=== PATIENT | female | born 1990 | race Caucasian/White ===

== ENCOUNTER → 2016-12-28 11:51 | Outpatient (CLI) | payer MEDICAID | END | disposition home or self-care (01) | LOC: D.LDO 11:51 | DX: O36.5930 Maternal care for other known or suspected poor fetal growth, third trimester, not applicable or unspecified (principal); Z3A.36 36 weeks gestation of pregnancy ==

== ENCOUNTER → 2016-12-31 12:41 | Outpatient (CLI) | payer MEDICAID | END | disposition home or self-care (01) | LOC: D.LDO 12:41 | DX: O36.5930 Maternal care for other known or suspected poor fetal growth, third trimester, not applicable or unspecified (principal); Z3A.36 36 weeks gestation of pregnancy ==

== ENCOUNTER → 2017-01-04 09:19 | Outpatient (CLI) | payer MEDICAID | END | disposition home or self-care (01) | LOC: D.LDO 09:19 | DX: O36.5930 Maternal care for other known or suspected poor fetal growth, third trimester, not applicable or unspecified (principal); Z3A.37 37 weeks gestation of pregnancy ==

== ENCOUNTER → 2017-01-07 13:13 | Outpatient (CLI) | payer MEDICAID | END | disposition home or self-care (01) | LOC: D.LDO 13:13 | DX: O36.5930 Maternal care for other known or suspected poor fetal growth, third trimester, not applicable or unspecified (principal); Z3A.37 37 weeks gestation of pregnancy ==

== ENCOUNTER → 2017-01-11 10:26 | Outpatient (CLI) | payer MEDICAID ==
[~2017-01-11 10:26] MED LIST: PREPLUS CA-FE1 EACH PO
[2017-01-12 09:27] VITALS: BMI 22.6
== END | disposition home or self-care (01) ==
LOC: D.LDO 10:26
DX: O26.893 Other specified pregnancy related conditions, third trimester (principal); Z3A.38 38 weeks gestation of pregnancy

== ENCOUNTER → 2017-01-11 19:57 | Outpatient (CLI) | payer MEDICAID ==
[~2017-01-11 19:57] MED LIST changes: +IBUPROFEN600 MG PO; +PERCOCET 5-3251 TAB PO
[2017-01-11 22:32] LABS: APPEARANCE HAZY (CLEAR); BILIRUBIN NEGATIVE (NEGATIVE); COLOR YELLOW (YELLOW); GLUCOSE NEGATIVE (NEGATIVE); KETONE NEGATIVE (NEGATIVE); LEUKOCYTE ESTERASE NEGATIVE (NEGATIVE); NITRITE NEGATIVE (NEGATIVE); PROTEIN NEGATIVE (NEGATIVE); UROBILINOGEN NORMAL (NORMAL)
[2017-01-12 09:27] VITALS: BMI 22.6
== END | disposition home or self-care (01) ==
LOC: D.ER 19:57 → D.LDO 19:57
PROVIDERS: Obstetrics & Gynecology
DX: O36.5930 Maternal care for other known or suspected poor fetal growth, third trimester, not applicable or unspecified (principal); Z3A.38 38 weeks gestation of pregnancy

== ENCOUNTER 2017-01-12 09:00 | Inpatient (IN) | payer MEDICAID ==
[~2017-01-12] VITALS: Ht 170.2 cm; Wt 65.3 kg
[2017-01-12] MEDS ORDERED: PREPLUS CA-FE1 EACH PO (09:26)
[2017-01-12 09:27] VITALS: BP 121/63; Ht 170.2 cm; Wt 65.3 kg
[2017-01-12 10:13] LABS: HEMATOCRIT 35.9 % (36.0-48.0); HEMOGLOBIN 12.1 g/dL (12-16); MCH 32.4 pg (26.0-34.0); MCHC 33.7 g/dL (31.0-37.0); MCV 96.2 fL (80.0-100.0); MEAN PLATELET VOLUME 12.8 fL (7.4-10.4); RBC 3.73 10x6/uL (4.00-5.40); RDW 13.1 % (11.5-14.5); WBC 18.9 10x3/uL (4.8-10.8)
--- NOTE | 2017-01-12 21:02 | NUR ---
DERMAPLAST, EPIFOAM, TUCKS, MOM, PERCOCET 5/325X1 TAB, NICODERM PATCH ALL GIVEN AT THIS TIME PER ORDERS. SEE EMAR. PT DENIES FURTHER NEEDS AT THIS TIME. WILL CONT POC. BED LOW, WHEELS LOCKED, CL IN REACH, SIDE RAILS UP X2.
--- NOTE | 2017-01-12 23:44 | NUR ---
PT RATES CURRENT PAIN 4/10 AFTER VOIDING. ADV PT TO USE EPIFOAM, DERMAPLAST, AND/OR TUCKS. PT VERBALIZED UNDERSTANDING. FRESH ICE PACK PROVIDED PER PT REQUEST. FOB HOLDING INFANT AT THIS TIME. PT DENIES FURTHER NEEDS. WILL CONTINUE POC.
--- NOTE | 2017-01-13 01:05 | NUR ---
ROUNDS MADE. PT SITTING UP IN BED WITH INFANT UP IN ARMS BONDING. FOB SLEEPING ON BEDSIDE COUCH. PT DENIES PAIN OR NEEDS AT THIS TIME.
--- NOTE | 2017-01-13 03:10 | NUR ---
ROUNDS MADE PT STANDING BESIDE BEDSIDE COUCH. IN FOB'S ARMS FOR BONDING. PT DENIES PAIN OR NEEDS AT THIS TIME. WILL CONT. TO MONITOR.
--- NOTE | 2017-01-13 05:18 | NUR ---
ROUNDS MADE. PT SITTING UP IN BED WITH INFANT UP IN ARMS. PT REQUESTS PERCOCET BE BROUGHT AFTER SHE FEEDS . ADV PT TO CALL OUT ON CL WHEN READY. PT VERBALIZED UNDERSTANDING. FOB REMAINS ON BEDSIDE COUCH. PT DENIES FURTHER NEEDS AT THIS TIME.
[2017-01-13 06:13] LABS: RAPID PLASMA REAGIN Non Reactive (Non Reactive)
--- NOTE | 2017-01-13 06:17 | NUR ---
PT RINGS CL REQUESTING PERCOCET 5/325 MG X1 TAB. SAME GIVEN. PT REQUESTS TO GO TO NBN IN ORDER TO REST. PT WANTS INFANT BACK FOR NEXT FEEDING. INFANT TRANSPORTED VIA OPEN CRIB PER THIS RN TO NBN AT THIS TIME.
[2017-01-13 07:14] LABS: BASOPHILS 0.2 % (0-2); EOSINOPHILS 0.5 % (0-7); HEMATOCRIT 30.8 % (36.0-48.0); HEMOGLOBIN 10.3 g/dL (12-16); IMMATURE GRANULOCYTES 0.3 % (0-5); LYMPHOCYTES 17.2 % (15-50); MCH 32.3 pg (26.0-34.0); MCHC 33.4 g/dL (31.0-37.0); MCV 96.6 fL (80.0-100.0); MEAN PLATELET VOLUME 13.1 fL (7.4-10.4); NEUTROPHILS 74.8 % (40-80); PLATELET COUNT 160 10x3/uL (130-400); RBC 3.19 10x6/uL (4.00-5.40); RDW 13.2 % (11.5-14.5); WBC 16.4 10x3/uL (4.8-10.8)
[2017-01-13 08:00] VITALS: BP 118/72
--- NOTE | 2017-01-13 08:00 | NUR ---
TO PT'S ROOM, AM ASSESSMENT COMPLETED. PT DENIES PASSING CLOTS OR HEAVY BLEEDING. RATING PAIN AT 6, TO PERINEAL AREA, BUT DENIES NEEDING PAIN MEDICATION AT THIS TIME. PAIN MED ADM RECORD REVIEWED WITH PT. PT IS NOW SITTING UP IN THE BED. FOB ON SOFA HOLDING . PT DENIES OTHER NEEDS AT THIS TIME. SRUP X 2, CALL LIGHT AND PHONE WITHIN REACH.
[2017-01-13] MEDS ORDERED: PERCOCET 5-3251 TAB PO (08:46)
[2017-01-13] MEDS ORDERED: IBUPROFEN600 MG PO (08:46)
--- NOTE | 2017-01-13 09:45 | NUR ---
Kamala Cuadra [birth year] S: Patient states is going great, FOB states they are just figuring this out, with being new parents. O: Patient sitting up in bed, attempting to wake infant. FOB sitting on bed, next to mother. Explained takes time and patience. In the first several weeks, mother and infant are both learning about , this takes time and patience. Asked if her nipples were sore or if she is having a hard time latching baby, patient states no, things are good. Take things one feeding at a time. Explain feeding cues. Breastfeed baby should eat on demand following feeding cues. Supply and demand, what baby takes out, your baby will make more of. Latching baby for every feeding will help with establishing your milk supply, supply and demand, what baby takes out your body will make more of. Explain breast milk composition. Provided and explained handouts on skin to skin, waking a sleeping baby, positioning, and hand expression. Encouraged to continue to latch baby for every feeding. Please ask for help as needed. Explained how to verify infant is latched and position correctly for feeding. should be tummy to tummy, nose opposite of nipple and directly in front on the breast. Allow to self latch while gently supporting head. should have a mouth full of breast, not just the nipple, when sucks it should not hurt. If you need us to verify if infant latch is correct, please let us know. Praised for . Asked if any questions, all declined. Patient thanked CLC. Will follow up. A: Patient appears confident with , FOB very supportive. P: Continue to support exclusively . Tracy Pinto, CLC
--- NOTE | 2017-01-13 10:38 | NUR ---
PT REQUESTS PAIN MEDICATION FOR PERINEAL PAIN, SEE EMAR FOR ALL MED ADM. PT AMBULATORY IN ROOM, DENIES NEEDS AT THIS TIME. SR UP X 2, CALL LIGHT AND PHONE WITHIN REACH.
--- NOTE | 2017-01-13 13:00 | NUR ---
PT HAS EATEN LUNCH, PT DENIES ANY NEEDS AT THIS TIME.
--- NOTE | 2017-01-13 15:00 | NUR ---
TO PT'S ROOM, PT IS PREPARING FOR DISCHARGE, DENIES NEEDS AT THIS TIME. SR UP X2, CALL LIGHT AND PHONE WITHIN REACH.
--- NOTE | 2017-01-13 19:20 | NUR ---
RN TO ROOM. REC'D PT AMBULATING IN ROOM WITH FOB HOLDING . PT REQUESTS ASSESSMENT NOT BE COMPLETED AND RN GO OVER D/C PAPERWORK. DISCHARGE INSTRUCTIONS REVIEWED WITH PT, DENIES QUESTIONS AT THIS TIME. PT OFF UNIT AT 1925 WITH RN IN W/C. HOLDING INFANT IN ARMS WILL PLACE IN CAR SEAT WHEN AT [facility] D/T HAVING REAR FACING CAR SEAT.
--- NOTE | 2017-01-13 19:26 | NUR ---
RN INSTRUCTED PT AND S/O ON ADJUSTING INFANT CAR SEAT STRAPS. S/O DEMONSTRATES UNDERSTANDING AND PLACES IN CAR SEAT PROPERLY AND CHECKS STRAPS FOR PROPER ADJUSTES. INSTRUCTED THAT TROOP K WILL CHECK CAR SEAT ALSO FOR PROPER INSTALLMENT WHEN INFANT SEAT HAS TO BE REMOVED, VERBALIZED UNDERSTANDING.
== END 2017-01-13 19:25 | disposition home or self-care (01) | DRG 775 ==
LOC: D.LDO 09:00 → D.LD 09:10
PROVIDERS: ADMIT Specialist
PROC: 10E0XZZ Delivery of Products of Conception, External Approach (ICD-10-PCS; principal; 2017-01-12)
PROC: 0HQ9XZZ Repair Perineum Skin, External Approach (ICD-10-PCS; 2017-01-12)
DX: O36.5930 Maternal care for other known or suspected poor fetal growth, third trimester, not applicable or unspecified (principal); Z3A.39 39 weeks gestation of pregnancy; Z37.0 Single live birth; O99.334 Smoking (tobacco) complicating childbirth; O69.81X0 Labor and delivery complicated by cord around neck, without compression, not applicable or unspecified; O70.0 First degree perineal laceration during delivery

== ENCOUNTER 2018-04-02 12:55 | Emergency (ER) | payer MEDICAID ==
[~2018-04-02] VITALS: Ht 170.2 cm; Wt 58.6 kg
[2018-04-02 13:27] VITALS: Ht 170.2 cm; Wt 58.6 kg
[2018-04-02] MEDS ORDERED: ONCOLOGY MOUTHWA5 ML PO (14:42)
[2018-04-02 15:12] VITALS: BP 109/64
== END 2018-04-02 15:13 | disposition home or self-care (01) ==
LOC: D.ER 12:55
DX: O26.893 Other specified pregnancy related conditions, third trimester (principal); Z3A.32 32 weeks gestation of pregnancy; K12.0 Recurrent oral aphthae; F17.200 Nicotine dependence, unspecified, uncomplicated

== ENCOUNTER 2018-05-03 10:00 | Inpatient (IN) | payer MEDICAID ==
[~2018-05-03] VITALS: Ht 170.2 cm; Wt 59.4 kg
[~2018-05-03 10:00] MED LIST changes: +ONCOLOGY MOUTHWA5 ML PO
[2018-05-03 10:38] LABS: HEMATOCRIT 34.3 % (36.0-48.0); HEMOGLOBIN 11.8 g/dL (12-16); MCH 32.2 pg (26.0-34.0); MCHC 34.4 g/dL (31.0-37.0); MCV 93.5 fL (80.0-100.0); MEAN PLATELET VOLUME 12.6 fL (7.4-10.4); RBC 3.67 10x6/uL (4.00-5.40); RDW 13.5 % (11.5-14.5); WBC 16.5 10x3/uL (4.8-10.8)
[2018-05-03 11:34] VITALS: BP 119/71; Ht 170.2 cm; Wt 59.4 kg
[2018-05-03 12:49] LABS: UDS - AMPHET NEGATIVE QUAL (NEGATIVE); UDS - BARB NEGATIVE QUAL (NEGATIVE); UDS - BENZO NEGATIVE QUAL (NEGATIVE); UDS - COCAINE NEGATIVE QUAL (NEGATIVE); UDS - OPIATE NEGATIVE QUAL (NEGATIVE); UDS - PCP NEGATIVE QUAL (NEGATIVE); UDS - THC POSITIVE QUAL (NEGATIVE)
[2018-05-03 21:50] VITALS: BP 107/77
[2018-05-04 07:33] LABS: RAPID PLASMA REAGIN Non Reactive (Non Reactive)
[2018-05-04 08:00] VITALS: BP 95/54
[2018-05-04 08:51] LABS: BASOPHILS 0.3 % (0-2); EOSINOPHILS 1.2 % (0-7); HEMATOCRIT 31.7 % (36.0-48.0); HEMOGLOBIN 10.8 g/dL (12-16); IMMATURE GRANULOCYTES 0.3 % (0-5); LYMPHOCYTES 25.8 % (15-50); MCH 31.9 pg (26.0-34.0); MCHC 34.1 g/dL (31.0-37.0); MCV 93.5 fL (80.0-100.0); MEAN PLATELET VOLUME 12.9 fL (7.4-10.4); MONOCYTES 6.9 % (2-11); NEUTROPHILS 65.5 % (40-80); PLATELET COUNT 140 10x3/uL (130-400); RBC 3.39 10x6/uL (4.00-5.40); RDW 13.4 % (11.5-14.5); WBC 11.8 10x3/uL (4.8-10.8)
[2018-05-08 10:13] LABS: UDSC - AMPHET Negative ng/mL (Cutoff=1000); UDSC - BARB Negative ng/mL (Cutoff=300); UDSC - BENZO Negative ng/mL (Cutoff=300); UDSC - COC Negative ng/mL (Cutoff=300); UDSC - METH Negative ng/mL (Cutoff=300); UDSC - OPIATES Negative ng/mL (Cutoff=300); UDSC - PCP Negative ng/mL (Cutoff=25); UDSC - PROPOXY Negative ng/mL (Cutoff=300); UDSC - THC Positive (Cutoff=50)
== END 2018-05-04 18:45 | disposition home or self-care (01) | DRG 775 ==
LOC: D.LDO 10:00 → D.LD 10:35
PROVIDERS: Obstetrics & Gynecology
PROC: 10E0XZZ Delivery of Products of Conception, External Approach (ICD-10-PCS; principal; 2018-05-03)
DX: O60.14X0 Preterm labor third trimester with preterm delivery third trimester, not applicable or unspecified (principal); O42.913 Preterm premature rupture of membranes, unspecified as to length of time between rupture and onset of labor, third trimester; O24.429 Gestational diabetes mellitus in childbirth, unspecified control; O99.334 Smoking (tobacco) complicating childbirth; Z3A.36 36 weeks gestation of pregnancy; Z37.0 Single live birth

== ENCOUNTER 2020-06-20 22:20 | Outpatient (CLI) | payer MEDICAID ==
[2018-05-03 11:34] VITALS: BMI 20.5
== END 2020-06-21 01:13 | disposition home or self-care (01) ==
LOC: D.LD 22:20 → D.LDO 22:20
PROVIDERS: ATTEND Student in an Organized Health Care Education/Training Program
DX: O47.9 False labor, unspecified (principal)

== ENCOUNTER 2020-06-24 08:10 | Inpatient (IN) | payer MEDICAID ==
[~2020-06-24] VITALS: Ht 170.2 cm; Wt 62.6 kg
[2020-06-24 08:34] VITALS: BP 136/94; Ht 170.2 cm; Wt 62.6 kg
[2020-06-24 08:48] LABS: HEMATOCRIT 32.2 % (36.0-48.0); HEMOGLOBIN 10.3 g/dL (12-16); MCH 29.1 pg (26.0-34.0); MEAN PLATELET VOLUME 12.4 fL (7.4-10.4); RBC 3.54 10x6/uL (4.00-5.40); RDW 15.4 % (11.5-14.5)
[2020-06-24 09:01] LABS: LYMPHOCYTES 13 % (15-50); MONOCYTES 1 % (2-11); NEUTROPHILS 83 % (40-80)
[2020-06-24 09:02] LABS: PLATELET ESTIMATE NORMAL
[2020-06-24 09:17] LABS: UDS - AMPHET NEGATIVE QUAL (NEGATIVE); UDS - BARB NEGATIVE QUAL (NEGATIVE); UDS - BENZO NEGATIVE QUAL (NEGATIVE); UDS - COCAINE NEGATIVE QUAL (NEGATIVE); UDS - OPIATE NEGATIVE QUAL (NEGATIVE); UDS - PCP NEGATIVE QUAL (NEGATIVE); UDS - THC POSITIVE QUAL (NEGATIVE)
[2020-06-24 10:04] LABS: HIV 1 & 2- RAPID SCREEN NEGATIVE (NEGATIVE)
--- NOTE | 2020-06-24 18:38 | NUR ---
PT TRANSFERED VIA AMBULATORY TO ROOM 1221. PT TO BED. ORIENTED TO ROOM, BED, AND CALL LIGHT. PT PROVIDED LINENS, TOILETRIES, DR PEPPER AND FRESH ICE WATER. PT DENIES C/O OR NEEDS.
--- NOTE | 2020-06-24 19:30 | NUR ---
REPORT GIVEN BY ELVIN. SANDIE
[2020-06-24 20:00] VITALS: BP 124/73
--- NOTE | 2020-06-24 20:00 | NUR ---
ASSESSMENT COMPLETED. IS SITTING UP IN BED FEEDING THE BABY. HEART SOUNDS REGULAR WITH OUT MURMUR. LUNGS SOUND CLEAR, BOWEL SOUNDS HEARD. SHE HAS NO C/O PAIN AT THIS TIME. HER FUNDUS WAS REALLY BOGGY WHEN CHECKED. MASSAGED TO FIRM. STATES SHE IS VOIDING WELL. UP AD STACY IN THE ROOM. CALL LIGHT NEAR, SIDE RAILS UP.
--- NOTE | 2020-06-24 21:22 | NUR ---
PT IS ABOUT TO GET IN THE SHOWER. SHE ASKED FOR SOME PAIN MEDS B/C HER BACK IS HURTING FROM FALLING ON HER TAILBONE. SHE RATES HER PAIN A 5.
--- NOTE | 2020-06-24 22:10 | NUR ---
PT HOLDING HER BABY AND WATCHING TV. NO C/O OR NEEDS AT THIS TIME
--- NOTE | 2020-06-24 22:10 | NUR ---
PT STATES THAT HER BACK PAIN IN MUCH BETTER NOW.RATES PAIN A 2
--- NOTE | 2020-06-25 | NUR ---
HOLDING BABY. NO C/O AND NO NEEDS AT THIS TIME.
--- NOTE | 2020-06-25 02:00 | NUR ---
PT UP TO BATHROOM. SHE HAS NO C/O AT THIS TIME. BABY SLEEPING IN HER CRIB. PT STATES SHE IS GOING TO GET SOME SLEEP NOW.
--- NOTE | 2020-06-25 04:00 | NUR ---
IN BED SLEEPING NO C/O OR NEEDS
--- NOTE | 2020-06-25 06:00 | NUR ---
PT IS DOING VERY WELL WITHOUT C/O. NO NEEDS AT THIS TIME
--- NOTE | 2020-06-25 07:00 | NUR ---
REPORT RECEIVED FROM Christi LENTZ RN.
[2020-06-25 07:16] LABS: RAPID PLASMA REAGIN Non Reactive (Non Reactive)
[2020-06-25 07:16] LABS: HEPATITIS C ANTIBODY <0.1 S/CO RAT (0.0-0.9)
[2020-06-25 07:26] LABS: BASOPHILS 0.2 % (0-2); EOSINOPHILS 0.7 % (0-7); HEMATOCRIT 29.4 % (36.0-48.0); HEMOGLOBIN 9.4 g/dL (12-16); IMMATURE GRANULOCYTES 0.5 % (0-5); LYMPHOCYTES 16.6 % (15-50); MCH 28.7 pg (26.0-34.0); MCV 89.6 fL (80.0-100.0); MEAN PLATELET VOLUME 12.3 fL (7.4-10.4); MONOCYTES 5.1 % (2-11); NEUTROPHILS 76.9 % (40-80); PLATELET COUNT 170 10x3/uL (130-400); RBC 3.28 10x6/uL (4.00-5.40); RDW 15.5 % (11.5-14.5); WBC 19.6 10x3/uL (4.8-10.8)
[2020-06-25 09:00] VITALS: BP 114/78
--- NOTE | 2020-06-25 09:00 | NUR ---
ASSESSMENT COMPLETE. SEE FLOWSHEET. FUNDUS FIRM 2 BELOW THE UMBILICUS. LOCHIA SMALL/SCANT AND RUBRA. NO NEEDS OR CONCERNS VOICED AT THIS TIME.
[2020-06-25 11:11] LABS: RUBELLA IGG 5.18 index (Immune >0.99)
--- NOTE | 2020-06-25 12:11 | NUR ---
ROOM CHECK. PATIENT RATES PAIN 3/10 IN HER TAILBONE. IBUPROFEN GIVEN PER ORDER. PATIENT UP WALKING IN ROOM AND HALLWAYS. DENIES ANY FURTHER NEEDS. CALL LIGHT IN REACH, SIDE RAILS UP X2. PATIENT SNUGGLING WITH INFANT IN BED. WILL CONTINUE TO MONITOR.
--- NOTE | 2020-06-25 13:00 | NUR ---
ROOM CHECK. PATIENT STATES PAIN DOWN TO 1/10. DENIES NEEDS. CALL LIGHT IN REACH, SIDE RAILS UP X2. WILL CONTINUE TO MONITOR.
--- NOTE | 2020-06-25 13:55 | NUR ---
ROOM CHECK. PATIENT DENIES NEEDS. CALL LIGHT IN REACH, SIDE RAILS UP X2. INFANT SLEEPING IN OPEN CRIB. WILL CONTINUE TO MONITOR.
--- NOTE | 2020-06-25 15:45 | NUR ---
ROUNDS MADE. PT SITTING UP IN BED WITH BABY IN ARMS. REQUESTS COLA; GIVEN. NO OTHER NEEDS AT THIS TIME.
[2020-06-25 16:08] LABS: BASOPHILS 0.2 % (0-2); EOSINOPHILS 0.6 % (0-7); HEMATOCRIT 31.7 % (36.0-48.0); IMMATURE GRANULOCYTES 0.3 % (0-5); LYMPHOCYTES 23.3 % (15-50); MCH 28.7 pg (26.0-34.0); MCHC 31.5 g/dL (31.0-37.0); MCV 90.8 fL (80.0-100.0); MEAN PLATELET VOLUME 12.4 fL (7.4-10.4); MONOCYTES 4.4 % (2-11); NEUTROPHILS 71.2 % (40-80); PLATELET COUNT 219 10x3/uL (130-400); RBC 3.49 10x6/uL (4.00-5.40); RDW 15.8 % (11.5-14.5)
--- NOTE | 2020-06-25 17:30 | NUR ---
DR. CUADRA CALLED TO UNIT. REPORTED CBC RESULT FROM 1600. DR. CUADRA STATES PT MAY D/C TO ROOMING IN IF PT DESIRES.
--- NOTE | 2020-06-25 17:45 | NUR ---
PT STATES SHE WOULD LIKE TO REMAIN (NOT D/C) UNTIL BABY DISCHARGES TOMORROW.
[2020-06-25 18:16] VITALS: BP 129/85
--- NOTE | 2020-06-25 19:30 | NUR ---
RECEIVED SHIFT REPORT FROM STEPHANY OSBORN RN
--- NOTE | 2020-06-25 20:05 | NUR ---
ROUNDS MADE, INFORMED PT THAT I WILL BE BACK SHORTLY TO DO ASSESSMENT, PT VERBALIZES UNDERSTANDING, DENIES NEEDS AT THIS TIME, INFANT IN OPEN CRIB CART AT BEDSIDE
[2020-06-25 20:57] VITALS: BP 120/74
--- NOTE | 2020-06-25 20:57 | NUR ---
ASSESSMENT PER FLOW SHEET, VS OBTAINED, SALINE LOCK IN RIGHT FA INTACT WITH NO REDNESS OR EDEMA, FF, ML, U/1, LITE BLEEDING NOTED WITH NO CLOTS, PT REPORTS A FEW SMALL ONES EARLIER IN THE DAY, PT REPORTS FLATUS, BM TODAY, AND VOIDING WITH NO DIFFICULTY, PT C/O COCCYX PAIN, REPORTS BREAKING HER "TAIL BONE" A FEW YEARS AGO, ADM MOTRIN PER MD ORDERS, SEE EMAR, PT DENIES FURTHER NEEDS, INFANT TO PT'S ARMS
--- NOTE | 2020-06-25 21:30 | NUR ---
PT HOLDING INFANT, DENIES NEEDS AT THIS TIME
--- NOTE | 2020-06-25 22:41 | NUR ---
PT AWAKE, HOLDING INFANT, REPORTS TAKING SHOWER, RATES COCCYX PAIN 03/28, INFORMED PT THAT I WILL ADM MOTRIN WHEN DUE NEXT, PT VERBALIZES UNDERSTANDING, DENIES NEEDS AT THIS TIME
--- NOTE | 2020-06-26 00:45 | NUR ---
PT RESTING WITH EYES CLOSED, RESP QUIET, NO DISTRESS NOTED, LEFT UNDISTURBED AT THIS TIME, IN OPEN CRIB CART AT BEDSIDE
--- NOTE | 2020-06-26 02:41 | NUR ---
UPON ENTERING ROOM, PT RESTING WITH EYES CLOSED, IN BED WITH PT, PT AROUSES TO SOFT VERBAL STIMULATION, PT INST TO NOT SLEEP WITH IN BED WITH HER, PT VERBALIZES UNDERSTANDING, CHANGED, SWADDLED, AND PLACED BACK IN OPEN CRIB CART, WILL ADM MOTRIN FOR PAIN, SEE EMAR
--- NOTE | 2020-06-26 02:49 | NUR ---
ADM MOTRIN PO PER MD ORDERS, SEE EMAR, WITH FRESH [place] [place]
--- NOTE | 2020-06-26 04:34 | NUR ---
PT AWAKE, HOLDING INFANT, WATCHING TV, DENIES NEEDS OR PAIN AT THIS TIME
--- NOTE | 2020-06-26 06:30 | NUR ---
UPON ENTERING ROOM, PT IS ASLEEP WITH IN BED, TALKED TO PT AGAIN ABOUT INFANT SLEEPING IN BED WITH HER, PT VERBALIZES UNDERSTANDING, STATES "I'M SORRY, I WON'T LET IT HAPPEN AGAIN", PT DENIES NEEDS OR PAIN
[2020-06-26 07:50] VITALS: BP 118/76
--- NOTE | 2020-06-26 08:42 | NUR ---
ASSESSMENT COMPLETE. VSS. DENIES PAIN. VOIDING WITHOUT DIFFICULTY. STATES VERY LIGHT BLEEDING. ACTIVE BOWEL SOUNDS. SL R FORARM. DRESSING INTACT. NO S/S OF REDNESS OR INFECTION NOTED AT THIS TIME. PAITENT DENIES ANY NEEDS AT THIS TIME. CALL LIGHT IN REACH, SIDE RAILS UP X2. IN BED WITH MOM TO BF. WILL CONTINUE TO MONITOR.
--- NOTE | 2020-06-26 09:30 | NUR ---
ROOM CHECK. PATIENT DENIES ANY PAIN OR NEEDS AT THIS TIME. CALL LIGHT IN REACH, SIDE RAILS UP X2. WILL CONTINUE TO MONTIOR.
--- NOTE | 2020-06-26 11:28 | NUR ---
ROOM CHECK. PATIENT UP WALKING IN ROOM. DENIES NEEDS OR PAIN. WILL CONTINUE TO MONITOR.
--- NOTE | 2020-06-26 12:00 | NUR ---
ROOM CHECK. PATIET UP WALKING IN ROOM. MOM IN ROOM SNUGGLING BABY. PATIENT DENIES NEEDS AT THIS TIME. WILL CONTINUE TO MONITOR.
--- NOTE | 2020-06-26 12:47 | NUR ---
D/C EDUCATION AND INSTRUCTIONS GIVEN TO PATIENT. SL IV REMOVED WITH TIP INTACT. NO S/S OF BLEEDING OR INFECTION NOTED. PATIENT VERBALIZED UNDERSTANDING AND AGREEMENT TO INSTRUCTIONS. NOT DISCHARGED AT THIS TIME. PATIENT WILL BE ROOMING IN TILL BABY DISCHARGED.
[2020-06-27 15:12] LABS: UDSC - AMPHET Negative ng/mL (Cutoff=1000); UDSC - BARB Negative ng/mL (Cutoff=300); UDSC - BENZO Negative ng/mL (Cutoff=300); UDSC - COC Negative ng/mL (Cutoff=300); UDSC - METH Negative ng/mL (Cutoff=300); UDSC - OPIATES Negative ng/mL (Cutoff=300); UDSC - PCP Negative ng/mL (Cutoff=25); UDSC - PROPOXY Negative ng/mL (Cutoff=300)
== END 2020-06-26 13:44 | disposition home or self-care (01) | DRG 807 ==
LOC: D.LDO 08:10 → D.WS 08:28 → D.LD 08:28 → D.WS 18:23
PROVIDERS: ADMIT Student in an Organized Health Care Education/Training Program; ATTEND Student in an Organized Health Care Education/Training Program
PROC: 10E0XZZ Delivery of Products of Conception, External Approach (ICD-10-PCS; principal; 2020-06-24)
DX: O99.824 Streptococcus B carrier state complicating childbirth (principal); Z37.0 Single live birth; Z3A.37 37 weeks gestation of pregnancy; O76 Abnormality in fetal heart rate and rhythm complicating labor and delivery; O69.81X0 Labor and delivery complicated by cord around neck, without compression, not applicable or unspecified; O36.5930 Maternal care for other known or suspected poor fetal growth, third trimester, not applicable or unspecified